=== PATIENT | female | born 2000 | race Caucasian/White ===

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

== ENCOUNTER 2021-01-16 18:11 | Emergency (ER) | payer MEDICAID ==
--- NOTE | 2021-01-16 19:15 | EDM.PDOC ---
ED HPI GENERAL MEDICAL PROBLEM - General Chief Complaint: Behavioral/Psych Stated Complaint: HARMFUL THOUGHTS Time Seen by Provider: 01/16/21 19:14 - History of Present Illness INITIAL COMMENTS - FREE TEXT/NARRATIVE: 20-year-old female presents the emergency room with depression and thoughts of possibly hurting herself. This is been going on for the last month or so. The patient does not have an active plan to take her life but she states that if she can figure out a way that would be painless she might do it. Patient has had problems with depression in the past she has been admitted with this in the past as well. Her brother was recently diagnosed with bipolar illness. 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 Patient has not had any recent changes to her medication. Patient has not had any recent signs of illness no fevers chills breathing difficulty shortness of breath nausea vomiting or unexplained pain. - Related Data Allergies Allergy/AdvReac Type Severity Reaction Status Date / Time No Known Allergies Allergy Verified 01/16/21 19:12 Home Meds: Home Meds Albuterol [Proventil HFA] 2 puff INH ASDIRECTED PRN 09/03/19 [History] Fluticasone Propionate [Flovent HFA] 2 puff INH DAILY PRN 09/03/19 [History] Vilazodone HCl [Viibryd] 10 mg PO DAILY 09/03/19 [History] Ethinyl Estradiol/Drospirenone [Elise 28] 1 each PO ASDIRECTED 01/16/21 [History] Mirtazapine 30 mg PO ASDIRECTED 01/16/21 [History] Past Medical History HEENT History: Reports: Impaired Vision Other HEENT History: wears glasses Musculoskeletal History: Reports: Other (See Below) Other Musculoskeletal History: Medial osteotomy Psychiatric History: Reports: Anxiety, Depression Endocrine/Metabolic History: Reports: Obesity/BMI 30+ Dermatologic History: Reports: Other (See Below) - Past Surgical History HEENT Surgical History: Reports: Adenoidectomy, Tonsillectomy Musculoskeletal Surgical History: Reports: Other (See Below) Other Musculoskeletal Surgeries/Procedures:: bilaateral foot and arch sx Dermatological Surgical History: Reports: Plastic Surgical Reconstruction/Repair Social & Family History - Family History Family Medical History: No Pertinent Family History - Caffeine Use Caffeine Use: Reports: Coffee, Tea - Living Situation & Occupation Living situation: Reports: with Family Occupation: Student (10th grade) ED ROS GENERAL - Review of Systems Review Of Systems: See Below Constitutional: Reports: No Symptoms HEENT: Reports: No Symptoms Respiratory: Reports: No Symptoms Cardiovascular: Reports: No Symptoms Endocrine: Reports: No Symptoms GI/Abdominal: Reports: No Symptoms : Reports: No Symptoms Musculoskeletal: Reports: No Symptoms Skin: Reports: No Symptoms Neurological: Reports: No Symptoms Psychiatric: Reports: Anxiety, Mood Lability, Suicidal Ideation Hematologic/Lymphatic: Reports: No Symptoms ED EXAM, GENERAL - Physical Exam Exam: See Below Exam Limited By: No Limitations General Appearance: Alert, No Apparent Distress, Other (She is easily tearful) Eye Exam: Bilateral Eye: Normal Inspection, PERRL Ears: Normal External Exam, Normal Canal, Hearing Grossly Normal, Normal TMs Nose: Normal Inspection, Normal Mucosa Throat/Mouth: Normal Inspection, Normal Lips, Normal Teeth, Normal Gums, Normal Oropharynx, Normal Voice, No Airway Compromise Head: Atraumatic, Normocephalic Neck: Normal Inspection, Supple, Non-Tender. No: Lymphadenopathy (L), Lymphadenopathy (R) Respiratory/Chest: No Respiratory Distress, Lungs Clear, Normal Breath Sounds, No Accessory Muscle Use, Chest Non-Tender Cardiovascular: Regular Rate, Rhythm, No Edema, No Murmur GI/Abdominal: Normal Bowel Sounds, Soft, Non-Tender Back Exam: Normal Inspection. No: CVA Tenderness (L), CVA Tenderness (R) Extremities: Normal Inspection, No Pedal Edema Neurological: Alert, Oriented, Normal Cognition Psychiatric: Depressed Mood, Flat Affect, Tearful. No: Anxious Skin Exam: Warm, Dry, Intact Course - Vital Signs Last Recorded V/S: Last Vital Signs Temp 36.2 C 01/16/21 19:15 Pulse 64 01/16/21 19:15 Resp 16 01/16/21 19:15 BP 119/87 01/16/21 19:15 Pulse Ox 98 01/16/21 19:15 - Orders/Labs/Meds Labs: Laboratory Tests 01/16/21 01/16/21 01/16/21 Range/Units 19:38 19:38 19:38 WBC 8.36 (3.98-10.04) K/mm3 RBC 4.06 (3.98-5.22) M/mm3 Hgb 11.8 (11.2-15.7) gm/dl Hct 36.1 (34.1-44.9) % MCV 88.9 (79.4-94.8) fl MCH 29.1 (25.6-32.2) pg MCHC 32.7 (32.2-35.5) g/dl RDW Std Deviation 42.2 (36.4-46.3) fL Plt Count 268 (182-369) K/mm3 MPV 9.2 L (9.4-12.3) fl Neut % (Auto) 52.5 (34.0-71.1) % Lymph % (Auto) 38.9 (19.3-51.7) % Rock % (Auto) 6.7 (4.7-12.5) % Eos % (Auto) 1.3 (0.7-5.8) Baso % (Auto) 0.6 (0.1-1.2) % Neut # (Auto) 4.39 (1.56-6.13) K/mm3 Lymph # (Auto) 3.25 (1.18-3.74) K/mm3 Rock # (Auto) 0.56 H (0.24-0.36) K/mm3 Eos # (Auto) 0.11 (0.04-0.36) K/mm3 Baso # (Auto) 0.05 (0.01-0.08) K/mm3 Sodium 144 (136-145) mEq/L Potassium 3.9 (3.5-5.1) mEq/L Chloride 108 H (98-107) mEq/L Carbon Dioxide 28 (21-32) mEq/L Anion Gap 11.9 (5-15) BUN 9 (7-18) mg/dL Creatinine 0.8 (0.55-1.02) mg/dL Est Cr Clr Drug Dosing 97.67 mL/min Estimated GFR (MDRD) > 60 (>60) mL/min BUN/Creatinine Ratio 11.3 L (14-18) Glucose 95 (70-99) mg/dL Calcium 8.5 (8.5-10.1) mg/dL Total Bilirubin 0.2 (0.2-1.0) mg/dL AST 22 (15-37) U/L ALT 22 (14-59) U/L Alkaline Phosphatase 42 L (46-116) U/L Total Protein 6.6 (6.4-8.2) g/dl Albumin 3.1 L (3.4-5.0) g/dl Globulin 3.5 gm/dL Albumin/Globulin Ratio 0.9 L (1-2) TSH 3rd Generation 2.437 (0.516-4.13) uIU/mL HCG, Qual Negative (NEGATIVE) Urine Color (Yellow) Urine Appearance (Clear) Urine pH (5.0-8.0) Ur Specific Guion (1.005-1.030) Urine Protein (Negative) Urine Glucose (UA) (Negative) Urine Ketones (Negative) Urine Occult Blood (Negative) Urine Nitrite (Negative) Urine Bilirubin (Negative) Urine Urobilinogen (0.2-1.0) Ur Leukocyte Esterase (Negative) Salicylates (2.8-20) mg/dL Urine Opiates Screen (KJQWVU=987) Ur Buprenorphine Scrn (CUTOFF=10) Ur Oxycodone Screen (QMQ2WW=783) Urine Methadone Screen (PUUJNW=933) Ur Propoxyphene Screen (WBGLBK=491) Acetaminophen 0 L (10-30) ug/mL Ur Barbiturates Screen (QEVBJJ=204) Ur Tricyclics Screen (FOSUXE=193) Ur Phencyclidine Scrn (CUTOFF=25) Ur Amphetamine Screen (BAYUTW=041) U Methamphetamines Scrn (TDFKLE=892) U Benzodiazepines Scrn (MISKIE=853) U Cocaine Metab Screen (SYQWMI=043) U Marijuana (THC) Screen (CUTOFF=50) Ethyl Alcohol 0.00 (0.00) gm% SARS-CoV-2 RNA (MARCIO) (NEGATIVE) 01/16/21 01/16/21 01/16/21 Range/Units 19:38 19:45 19:45 WBC (3.98-10.04) K/mm3 RBC (3.98-5.22) M/mm3 Hgb (11.2-15.7) gm/dl Hct (34.1-44.9) % MCV (79.4-94.8) fl MCH (25.6-32.2) pg MCHC (32.2-35.5) g/dl RDW Std Deviation (36.4-46.3) fL Plt Count (182-369) K/mm3 MPV (9.4-12.3) fl Neut % (Auto) (34.0-71.1) % Lymph % (Auto) (19.3-51.7) % Rock % (Auto) (4.7-12.5) % Eos % (Auto) (0.7-5.8) Baso % (Auto) (0.1-1.2) % Neut # (Auto) (1.56-6.13) K/mm3 Lymph # (Auto) (1.18-3.74) K/mm3 Rock # (Auto) (0.24-0.36) K/mm3 Eos # (Auto) (0.04-0.36) K/mm3 Baso # (Auto) (0.01-0.08) K/mm3 Sodium (136-145) mEq/L Potassium (3.5-5.1) mEq/L Chloride (98-107) mEq/L Carbon Dioxide (21-32) mEq/L Anion Gap (5-15) BUN (7-18) mg/dL Creatinine (0.55-1.02) mg/dL Est Cr Clr Drug Dosing mL/min Estimated GFR (MDRD) (>60) mL/min BUN/Creatinine Ratio (14-18) Glucose (70-99) mg/dL Calcium (8.5-10.1) mg/dL Total Bilirubin (0.2-1.0) mg/dL AST (15-37) U/L ALT (14-59) U/L Alkaline Phosphatase (46-116) U/L Total Protein (6.4-8.2) g/dl Albumin (3.4-5.0) g/dl Globulin gm/dL Albumin/Globulin Ratio (1-2) TSH 3rd Generation (0.516-4.13) uIU/mL HCG, Qual (NEGATIVE) Urine Color Dark yellow (Yellow) Urine Appearance Clear (Clear) Urine pH 6.0 (5.0-8.0) Ur Specific Guion > or = 1.030 (1.005-1.030) Urine Protein Negative (Negative) Urine Glucose (UA) Negative (Negative) Urine Ketones Negative (Negative) Urine Occult Blood Negative (Negative) Urine Nitrite Negative (Negative) Urine Bilirubin 1+ H (Negative) Urine Urobilinogen 0.2 (0.2-1.0) Ur Leukocyte Esterase Negative (Negative) Salicylates 0.9 L (2.8-20) mg/dL Urine Opiates Screen Negative (YBHVUS=535) Ur Buprenorphine Scrn Negative (CUTOFF=10) Ur Oxycodone Screen Negative (TML2JB=196) Urine Methadone Screen Negative (XOKRDT=459) Ur Propoxyphene Screen Negative (BUFSRT=989) Acetaminophen (10-30) ug/mL Ur Barbiturates Screen Negative (BWODWW=081) Ur Tricyclics Screen Negative (CEGVTL=550) Ur Phencyclidine Scrn Negative (CUTOFF=25) Ur Amphetamine Screen Negative (BHPCIP=560) U Methamphetamines Scrn Negative (GGZWPQ=920) U Benzodiazepines Scrn Negative (KFXEBB=537) U Cocaine Metab Screen Negative (MGJRKA=564) U Marijuana (THC) Screen Presumptive positive H (CUTOFF=50) Ethyl Alcohol (0.00) gm% SARS-CoV-2 RNA (MARCIO) (NEGATIVE) 01/16/21 Range/Units 20:25 WBC (3.98-10.04) K/mm3 RBC (3.98-5.22) M/mm3 Hgb (11.2-15.7) gm/dl Hct (34.1-44.9) % MCV (79.4-94.8) fl MCH (25.6-32.2) pg MCHC (32.2-35.5) g/dl RDW Std Deviation (36.4-46.3) fL Plt Count (182-369) K/mm3 MPV (9.4-12.3) fl Neut % (Auto) (34.0-71.1) % Lymph % (Auto) (19.3-51.7) % Rock % (Auto) (4.7-12.5) % Eos % (Auto) (0.7-5.8) Baso % (Auto) (0.1-1.2) % Neut # (Auto) (1.56-6.13) K/mm3 Lymph # (Auto) (1.18-3.74) K/mm3 Rock # (Auto) (0.24-0.36) K/mm3 Eos # (Auto) (0.04-0.36) K/mm3 Baso # (Auto) (0.01-0.08) K/mm3 Sodium (136-145) mEq/L Potassium (3.5-5.1) mEq/L Chloride (98-107) mEq/L Carbon Dioxide (21-32) mEq/L Anion Gap (5-15) BUN (7-18) mg/dL Creatinine (0.55-1.02) mg/dL Est Cr Clr Drug Dosing mL/min Estimated GFR (MDRD) (>60) mL/min BUN/Creatinine Ratio (14-18) Glucose (70-99) mg/dL Calcium (8.5-10.1) mg/dL Total Bilirubin (0.2-1.0) mg/dL AST (15-37) U/L ALT (14-59) U/L Alkaline Phosphatase (46-116) U/L Total Protein (6.4-8.2) g/dl Albumin (3.4-5.0) g/dl Globulin gm/dL Albumin/Globulin Ratio (1-2) TSH 3rd Generation (0.516-4.13) uIU/mL HCG, Qual (NEGATIVE) Urine Color (Yellow) Urine Appearance (Clear) Urine pH (5.0-8.0) Ur Specific Guion (1.005-1.030) Urine Protein (Negative) Urine Glucose (UA) (Negative) Urine Ketones (Negative) Urine Occult Blood (Negative) Urine Nitrite (Negative) Urine Bilirubin (Negative) Urine Urobilinogen (0.2-1.0) Ur Leukocyte Esterase (Negative) Salicylates (2.8-20) mg/dL Urine Opiates Screen (VSWKNF=754) Ur Buprenorphine Scrn (CUTOFF=10) Ur Oxycodone Screen (WSF9LG=438) Urine Methadone Screen (ANKDGN=927) Ur Propoxyphene Screen (DVUPKW=120) Acetaminophen (10-30) ug/mL Ur Barbiturates Screen (JKWSIT=808) Ur Tricyclics Screen (KIDLHI=872) Ur Phencyclidine Scrn (CUTOFF=25) Ur Amphetamine Screen (JRIXSJ=377) U Methamphetamines Scrn (FMUYIR=016) U Benzodiazepines Scrn (TKXJJW=476) U Cocaine Metab Screen (EUCXGJ=290) U Marijuana (THC) Screen (CUTOFF=50) Ethyl Alcohol (0.00) gm% SARS-CoV-2 RNA (MARCIO) Negative (NEGATIVE) - Re-Assessments/Exams Free Text/Narrative Re-Assessment/Exam: 01/16/21 20:39 I have found a psych bed at [facility]. Patient's mother is willing to transport the patient will need to go through the emergency room there. We are awaiting her Covid status. 01/16/21 21:[address] Chi, psychiatrist at [facility]. Who is happy to accept the patient the patient will be a direct admission to psychiatry with the patient's mother driving her there. Departure - Departure Time of Disposition: 21:23 Disposition: DC/Tfer to Acute Hospital 02 Clinical Impression: Depression, Suicidal ideation - Discharge Information Referrals: Tosha Palmer PA-C [Primary Care Provider] - Forms: ED Department Discharge Additional Instructions: Go straight to the [facility] in [place] and go to psychiatry, they are expecting you. Do not stop to eat just take your essentials and get there as quickly as you can. Sepsis Event Note (ED) - Focused Exam Vital Signs: Vital Signs Temp Pulse Resp BP Pulse Ox 01/16/21 19:15 36.2 C 64 16 119/87 98
[2021-01-16 20:21] LABS: ACETAMINOPHEN 0 ug/mL (10-30)
[2021-01-16 21:45] VITALS: BP 117/84; PULSE 62
== END 2021-01-16 21:46 ==
LOC: JD.ED 18:11
DX: F32.9 Major depressive disorder, single episode, unspecified (principal); E66.9 Obesity, unspecified; Z68.25 Body mass index [BMI] 25.0-25.9, adult; Z20.822 Contact with and (suspected) exposure to COVID-19
CPT/HCPCS: 36415; 80053; 80143; 80179; 80306; 80307; 81003; 84443; 84703; 85025; 99284; 99285; U0002

== ENCOUNTER 2022-08-03 21:01 | Emergency (ER) | payer MEDICAID ==
[2022-08-03 21:59] VITALS: BP 108/82; PULSE 90
[2022-08-03 22:41] LABS: CORONAVIRUS COVID-19 NAA NEGATIVE (NEGATIVE)
== END 2022-08-03 23:50 | disposition home or self-care (01) ==
LOC: JD.ED 21:01
DX: J10.1 Influenza due to other identified influenza virus with other respiratory manifestations (principal); Z20.822 Contact with and (suspected) exposure to COVID-19
CPT/HCPCS: 0241U; 99283